=== PATIENT | female | born 1935 | race African-American/Black ===

== ENCOUNTER 2017-02-28 20:37 | Inpatient (IN) | payer MEDICARE, MEDICAID ==
[2017-02-28] MEDS ORDERED: Adacel (T-DAP) 0.5 ML VIAL ONE (21:43)
[2017-02-28 22:02] LABS: #Eosinphils 0.1 thou/uL (0.0-0.7); #Lymphocytes 1.6 thou/uL (1.20-3.40); #Monocytes 0.6 thou/uL (0.11-0.59); #Neutrophils 5.4 thou/uL (1.40-6.50); %Basophils 0.5 % (0.0-1.0); %Eosinophils 0.8 % (0.0-10.0); %Lymphocytes 21.1 % (21.0-51.0); %Monocytes 7.7 % (0.0-10.0); Hematocrit 34.3 % (36.0-47.0); Mean Platelet Volume 8.6 fL (7.4-10.4); Red Blood Cell (RBC) Count 3.29 mill/uL (4.20-5.40); White Blood Cell (WBC) Count 7.7 thou/uL (4.8-10.8)
[2017-02-28 22:14] LABS: Anion Gap 9 mmol/L (10-20); BUN (Urea Nitrogen) 18 mg/dL (9.8-20.1); Calc. Creatinine Clearance 0 mL/min (70-130); Calcium 6.9 mg/dL (7.8-10.44); Carbon Dioxide 30 mmol/L (23-31); Chloride 98 mmol/L (98-107); Estimated GFR-MDRD 17
[2017-02-28] MEDS ORDERED: Morphine 4 MG/ML VIAL ONE (22:25)
--- NOTE | 2017-02-28 22:28 | RAD ---
TWO VIEWS OF THE LEFT ELBOW 02/28/17 INDICATION: Fell out of wheelchair with elbow pain. FINDINGS: There is soft tissue swelling of the left arm and proximal forearm with Monckeberg calcifications wit hin the soft tissues. No joint capsular distention is evident. Radiocapitellar alignment is within no rmal limits. There is mild osteoarthrosis in the ulnohumeral joint. IMPRESSION: 1. No acute osseous abnormality. 2. Soft tissue swelling of the left arm. POS: BETSY
--- NOTE | 2017-02-28 22:31 | RAD ---
TWO VIEWS OF THE LEFT HUMERUS: 02/28/17 HISTORY: Fall from wheelchair with arm pain. IMPRESSION: No acute fracture or subluxation is evident. Mild glenohumeral osteoarthrosis. Mild elbow joint osteo arthrosis. Partial visualization of a left sided chest wall pacemaker. Moderate left AC joint osteoar throsis. Monckeberg calcification within the soft tissues of the left arm. There is diffuse soft tiss ue swelling of the left arm. COMMENTS: No comparisons are available. POS: CALLY
[2017-02-28] MEDS ORDERED: Potassium Chloride 40 MEQ in Sodium Chloride 0.9% 250 ML 250 ML IVPB SCH (23:00)
--- NOTE | 2017-03-01 00:03 | CON ---
DATE OF CONSULTATION: 02/28/2017 HISTORY OF PRESENT ILLNESS: The patient is an 81-year-old -Ang[place] female who was transferred to [facility] from the shelter after a fall from her wheelchair. She reportedly hit her head on the table and then went to the floor. CT of head negative for any acute changes. CT of the cervical spine is notable for questionable C2 odontoid fracture and increased spondylolisthesis at C3-C4. I am seeing the patient at the bedside. She is complaining of some pain to her head. She has little movement in bilateral upper and lower extremities. Her son reports that she has some long history of lower extremity weakness, which has been progressively worse over the last year and a half. For the last year and a half, the patient has been wheelchair bound. She reports that she did have a fall about a month ago and since that time, she has had progressively worsening bilateral arm weakness as well. PAST MEDICAL HISTORY: Coronary artery disease on plavix, congestive heart failure, type 2 diabetes, GERD, dementia, hypertension, end-stage renal disease on dialysis, anemia, encephalopathy. PAST SURGICAL HISTORY: Dialysis shunt, hysterectomy, and CABG. SOCIAL HISTORY: The patient lives in shelter. She does not smoke, drink, or use any drugs. ALLERGIES: The patient is allergic to PENICILLIN AND SULFA. REVIEW OF SYSTEMS: Per HPI. PHYSICAL EXAMINATION: VITAL SIGNS: Blood pressure is 158/53, pulse of 65, respiration rate is 16, 97 % on room air, temperature is 97.9. HEAD: Patient has an abrasion and hematoma to the forehead and small skin tear over the right scalp. EYES: PERRLA. Extraocular movements are intact. Sclerae white. ENT: Oral mucosa is pink, intact, moist. She has a normal voice. NECK: Patient is currently in an [place] collar. She has no tenderness to palpation. RESPIRATORY: The patient is breathing comfortably. She has symmetric chest expansion. CARDIOVASCULAR: Regular rate and rhythm. MUSCULOSKELETAL: Patient has ecchymosis to bilateral upper extremities. She has some decreased strength to bilateral upper and lower extremities 2/5 throughout. Peripheral pulses are intact and symmetric. NEUROLOGIC: She is A and O x2, oriented to person and place. This is baseline for the patient per her son. She has normal speech. She has weakness in bilateral upper and lower extremities, 2/5 strength throughout. Negative Stern's, negative clonus. ASSESSMENT: Fall, type 2 odontoid fracture of indeterminate age, spondylolisthesis of C3-C4, cervical myelopathy. PLAN: The patient has been admitted to the Trauma Service. She was then placed on [place] collar and will be kept on spinal precautions. We will plan to get further evaluation, the patient with a noncontrast cervical MRI. I have discussed this plan with Dr. Palma who is in agreement. Please reach out to Neurosurgery Service for additional questions or concerns. CL
[2017-03-01] MEDS ORDERED: Promethazine HCl 25 MG/ML VIAL IM PRN (00:30)
[2017-03-01] MEDS ORDERED: HumaLOG 300 UNITS/3 ML VIAL SC PRN (00:30)
[2017-03-01] MEDS ORDERED: hydrALAZINE 20 MG/ML VIAL SLOW IVP PRN (00:30)
[2017-03-01] MEDS ORDERED: Dextrose 50% Abboject 50 ML SYRINGE SLOW IVP PRN (00:30)
[2017-03-01] MEDS ORDERED: Ondansetron ODT 4 MG TAB PO PRN (00:30)
[2017-03-01] MEDS ORDERED: Polyethylene Glycol 3350 17 GM Packet PO PRN (00:30)
[2017-03-01] MEDS ORDERED: Ondansetron HCl/PF 4 MG/2 ML Vial IVP PRN (00:30)
[2017-03-01] MEDS ORDERED: Dextrose 5% in Water 1,000 ML IV PRN (00:30)
[2017-03-01] MEDS ORDERED: Acetaminophen 500 MG TAB PO PRN (00:30)
[2017-03-01 00:47] VITALS: BMI 28.3
[2017-03-01] MEDS: Morphine 2 mg/2ml in 0.9% NaCl PF SYRINGE IV PRN ×2 (01:38→06:37)
[2017-03-01 05:38] LABS: #Basophils 0.1 thou/uL (0.0-0.2); #Eosinphils 0.1 thou/uL (0.0-0.7); #Lymphocytes 1.6 thou/uL (1.20-3.40); #Monocytes 0.6 thou/uL (0.11-0.59); #Neutrophils 4.3 thou/uL (1.40-6.50); %Eosinophils 1.2 % (0.0-10.0); %Lymphocytes 23.7 % (21.0-51.0); %Monocytes 8.8 % (0.0-10.0); Hematocrit 36.2 % (36.0-47.0); Mean Platelet Volume 8.5 fL (7.4-10.4); Red Blood Cell (RBC) Count 3.47 mill/uL (4.20-5.40); White Blood Cell (WBC) Count 6.5 thou/uL (4.8-10.8)
[2017-03-01 05:40] LABS: Anion Gap 8 mmol/L (10-20); BUN (Urea Nitrogen) 19 mg/dL (9.8-20.1); Calc. Creatinine Clearance 16 mL/min (70-130); Carbon Dioxide 29 mmol/L (23-31); Chloride 99 mmol/L (98-107); Estimated GFR-MDRD 16
--- NOTE | 2017-03-01 07:54 | HP ---
Cas Bowens PA-C, dictating for Dr. Sherwin Stewart. DATE OF SERVICE: 02/28/2017 CONSULTING PHYSICIAN: Dr. Palma for Neurosurgery. CHIEF COMPLAINT: Evaluation status post fall. HISTORY OF PRESENT ILLNESS: An 81-year-old female, who presented to ED from [place] after evaluatio n there from status post fall from her retirement at that point. The patient reported that she fel l forward out of her wheelchair where she was bruised, she was bound at the retirement. She hit he r head on the table. The patient does have a hematoma on the forehead and C2 fractures noted on CT s can from [place]. The patient denies any head or neck pain. She does report pain in left arm which shows ecchymosis and bruising. The patient is A and O x2 at baseline. The patient denied any chest pain, dizziness, shortness of breath prior to fall. PAST MEDICAL HISTORY: Includes spondylolisthesis of the cervical spine, end-stage renal disease, dys phagia, dementia, congestive heart failure, coronary artery disease, cardiomyopathy, type 2 diabetes, hypertension, and on dialysis. PAST SURGICAL HISTORY: Right upper extremity fistula, history of hysterectomy, and CABG. PSYCHIATRIC HISTORY: No psychiatric history. SOCIAL HISTORY: Denies alcohol, drug, or smoking history. She is a resident of [facility] area. REVIEW OF SYSTEMS: All systems reviewed otherwise stated in HPI were negative. PHYSICAL EXAMINATION: VITAL SIGNS: Blood pressure 158/53, heart rate is 65, respiratory rate 12, 97.9 temperature, 10/10 p ain, 97% on room air. GENERAL: She is in no acute distress. A and O x2. HEAD: Normocephalic. Abrasion and hematoma about 1.5 cm of right frontal area. EYES: Pupils are equal, round, reactive to light. NECK: No JVD, no masses. Trachea is midline. She is on a cervical collar. RESPIRATORY: She is clear bilaterally via auscultation. CARDIOVASCULAR: S1, S2, regular rate and rhythm. ABDOMEN: Soft, nontender, nondistended. BACK: Unremarkable. EXTREMITIES: Upper extremity: Hematoma and ecchymosis in left upper extremity, pain bilaterally in upper extremities, 2/5 strength in bilateral upper extremities. The patient is intact. Radial pulse s normal. Bilateral lower extremities, 1/5 strength, as well as sensation, is intact. Pulses normal . No obvious injuries. LABORATORY DATA: Results are pending. RADIOLOGIC REPORTS: CT C-spine showed a C2 odontoid fracture and significant narrowing and stenosis of C3-4. Pending elbow and humerus x-rays. ASSESSMENT: 1. Status post fall. 2. Multiple medical comorbidities. 3. C2 odontoid fracture. 4. Acute traumatic pain. The plan will be to admit to the surgical floor at this time with neurosurgical consultation. We vignesh l await their plan in regard to the noted above injuries. We will continue her on a regular diet as instructed from her retirement report. Continue her home medications, maintain pain control adequa tely with p.o. and IV analgesics. Review all final reports of laboratory findings. The patient has been discussed with Dr. Stewart who agrees with the above plan.
[2017-03-01] MEDS: Carvedilol 25 MG TAB PO SCH (08:40)
[2017-03-01] MEDS: Senokot S 8.6-50 MG TAB PO SCH ×2 (08:40→20:15)
[2017-03-01] MEDS: Famotidine 20 MG TAB PO SCH (08:40)
--- NOTE | 2017-03-01 10:11 | PRG ---
DATE OF SERVICE: 03/01/2017 Ms. Olivarez is seen with Stacey Louise on rounds. Please see her H&P for full details. Briefly, Ms. Reginald london had a fall, struck her head on her forehead and has question of a C2 fracture. She has been seen by Neurosurgery. Dr. Palma recommends no further treatment. Patient has a history of progressiv e upper and lower extremity weakness baseline and baseline dementia. She will be [facility]. Palma says she does not need a caller. Please see consult for details of that.
[2017-03-01] MEDS ORDERED: Atorvastatin Calcium 10 MG TAB PO SCH (21:00)
--- NOTE | 2017-03-01 23:31 | PRG ---
DATE OF SERVICE: 03/01/2017 SUBJECTIVE: No acute events overnight. The patient's pain is controlled. No further complaints at this time. Denies any chest pain, shortness of breath, nausea, or vomiting. OBJECTIVE: VITAL SIGNS: Temperature 97.8, heart rate 82, respiratory rate 20, 96%, blood pressure is 116/57. PULMONARY: Clear bilaterally via auscultation. CARDIOVASCULAR: S1 and S2, regular rate and rhythm. ABDOMEN: Soft, nontender, and nondistended. EXTREMITIES: Tenderness in the left upper extremity due to the ecchymosis. Extremities are unremark able. Otherwise, weak. Sensation is intact. LABORATORY FINDINGS: CBC showed a WBC of 6.5, hemoglobin 11, hematocrit of 36.2, platelet count 109. Chemistry: Sodium of 133, potassium 3.3, chloride 99, bicarbonate 29, BUN 19, creatinine 3.34, glu cose 59. ASSESSMENT AND PLAN: This is an 81-year-old female status post fall with C2 fracture, progressive wo rsening and weakness of bilateral upper extremities. Dr. Palma for Neurosurgery has recommended f antoniother treatment. They removed the collar and at the earliest convenience be able to transfer her ba ck to her senior living. At this time, we will continue with Nephrology's treatment plan and optimize her pain with p.o. analgesics. Otherwise, the patient was discussed with Dr. Bautista and he agrees wi th the above plan.
[2017-03-02] MEDS: Carvedilol 25 MG TAB PO SCH (08:10)
[2017-03-02] MEDS: Famotidine 20 MG TAB PO SCH (08:10)
[2017-03-02] MEDS: Senokot S 8.6-50 MG TAB PO SCH (08:11)
--- NOTE | 2017-03-02 10:04 | CON ---
DATE OF CONSULTATION: 03/02/2017 HISTORY OF PRESENT ILLNESS: Ms. Olivarez is an 81-year-old black female who was admitted secondary to a fall. She underwent a CT scan of her brain and cervical neck. She was found to have a C2 fracture. She is currently on neck support. We are being consulted for her maintenance hemodialysis. Please note, she underwent for her regular dialysis yesterday without any difficulty. No heparin was used. This morning, voices no new complaints. REVIEW OF SYSTEMS: Positive for neck pain. Positive for confusion. No nausea, no vomiting. Denies any syncopal episode. No chest pain, no shortness of breath, no productive cough, no fever or chill s. No abdominal pain. No gross hematuria. No dysuria, no urinary frequency. PAST MEDICAL HISTORY: 1. Patient has ESRD and currently on maintenance hemodialysis Friday, , and Friday. 2. She has a history of dementia. 3. Dyslipidemia. 4. Hypertension. 5. Type 2 diabetes mellitus, controlled by diet. 6. Coronary artery disease. PAST SURGICAL HISTORY: 1. Status post cardiac catheterization. 2. Status post coronary artery bypass graft. 3. Status post AV fistula placement. 4. Status post hysterectomy. 5. Status post cuffed dialysis catheter placement. ALLERGIES: PENICILLIN, SULFA. TRAUMA: Recently status post fall with cervical fracture - C2. IMMUNIZATIONS: Up to date. HOSPITALIZATIONS: Please see past medical history. SOCIAL HISTORY: The patient lives in a assisted at [place]. Single. Total of 8 children with two . Status post multiple blood transfusions. Currently, no alcohol. No IV drug abuse. S edentary lifestyle. FAMILY HISTORY: No family history of ESRD. PHYSICAL EXAMINATION: VITAL SIGNS: Blood pressure is noted at 130/50, heart rate 63, respiratory rate 16, temperature 97.5 , pulse ox 94%. GENERAL: Awake, alert, supine, comfortable, not in overt distress. HEENT: Pinkish conjunctivae, anicteric sclerae. NECK: No neck mass, no carotid bruits, no JVD. She does have a cervical collar. LUNGS: Decreased breath sounds. No wheezing. HEART: Normal sinus rhythm. No murmur, no gallops or rubs. ABDOMEN: Globular, soft, nontender, no masses. EXTREMITIES: No edema. NEUROLOGIC: Awake, intermittently confused, not in distress. Moving all extremities. MEDICATIONS: Of 03/02/2017, Tylenol 1000 mg q.6 hours p.r.n., Lipitor 10 mg at bedtime, Coreg 25 mg p.o. q.a.m., Pepcid 20 mg daily, hydralazine 10 mg IV q.4 hours p.r.n., Levsin 0.125 mg p.o. b.i.d., Humalog sliding scale, Zofran 4 mg IV q.6 hours p.r.n. LABORATORY DATA: Of 03/01/2017, white count 6.5, hemoglobin 11. Sodium 133, potassium 3.3, chloride 99, carbon dioxide 29, BUN 19, creatinine 3.34, GFR 16 mL per minute, calcium 7.0. ASSESSMENT AND PLAN: 1. End-stage renal disease, stable. Continue Friday, , and Friday dialysis. Fluid remov al only as tolerated by the patient. Due to the recent trauma, we are trying to avoid any heparin us e if possible. 2. C2 fracture - continue supportive care. Neurosurgery is following. Cervical collar will probabl y either be continued or discontinued by the neurosurgeon. Overall, I agree with current management.
[2017-03-02 12:09] VITALS: BP 150/52; TEMP 98.4
--- NOTE | 2017-03-02 19:09 | DIS ---
DATE OF ADMISSION: 02/28/2017 DATE OF DISCHARGE: 03/02/2017 ADMITTING PHYSICIAN: Jaskaran Stewart M.D. CONSULTING PHYSICIAN: Dr. Palma, Neurosurgery. REASON FOR HOSPITALIZATION: Fall from wheelchair. HOSPITAL DIAGNOSES: Type 2 odontoid fracture of indeterminate age, spondylolisthesis of C3-C4, cervical myelopathy and fall from wheelchair. PROCEDURES: There were no operative procedures during this hospitalization. The patient was discharged. CONDITION: Stable. DISPOSITION: Discharged back to previous living situation at residential in [place], [place]. BRIEF SUMMARY OF HOSPITALIZATION: Renetta Olivarez is an 81-year-old female who was taken to the [facility] ER from the residential after a fall from her wheelchair. CT of the head was negative for any acute changes. CT of the cervical spine was notable for a questionable C2 odontoid fracture and increased spondylolisthesis at C3-C4. She was transferred to [facility] and evaluated by the emergency physician. Trauma services was consulted for admission and management. Neurosurgery was consulted for a questionable C2 fracture. The patient was placed in an [place] collar. Her son reported that she had some long history of lower extremity weakness which has been progressively worse over the last year and a half. She has since been wheelchair bound. She also has had multiple falls, one about a month ago and since that time has had progressively worsening bilateral arm weakness. After speaking with her son extensively, he also reports that at her residential, she refused to participate with physical and occupational therapy, which has made her overall weakness increased. She also has multiple comorbidities including coronary artery disease and she is on Plavix, congestive heart failure , type 2 diabetes, GERD, dementia, hypertension, end-stage renal disease on hemodialysis, anemia and encephalopathy. Her son does report that she is also noncompliant at times with receiving hemodialysis in the residential. Patient was admitted to the surgical floor. She remained stable. She was unable to receive an MRI because of her pacemaker. Dr. Palma, Neurosurgery saw her. He deemed that she is not a surgical candidate. Cervical collar could be removed as she goes back to her residential previous living situation per his recommendations. Dr. Collier of Nephrology was consulted and the patient underwent hemodialysis on 03/01/2017. On 03/02/2017, she was deemed stable to go back to her previous living situation at the residential. She does not need to follow up with Neurosurgery or Trauma Surgery. She was given followup information should she desire to follow up. She is to return to her residential and resume orders per her residential doctor as previously ordered. She was given discharge instructions and return precautions with son present in the room. History, review of systems, physical exam, assessment, and discharge plan were reviewed with Dr. Stewart. CL
== END 2017-03-02 15:24 | DRG 551 ==
LOC: ERS 20:37 → SURG A 21:19
PROVIDERS: ADMIT Surgery; ATTEND Surgery
PROC: 0HQ0XZZ Repair Scalp Skin, External Approach (ICD-10-PCS; 2017-02-28)
PROC: 5A1D70Z Performance of Urinary Filtration, Intermittent, Less than 6 Hours Per Day (ICD-10-PCS; principal; 2017-03-01)
DX: S12.110A Anterior displaced Type II dens fracture, initial encounter for closed fracture (principal); N18.6 End stage renal disease; I13.2 Hypertensive heart and chronic kidney disease with heart failure and with stage 5 chronic kidney disease, or end stage renal disease; G93.40 Encephalopathy, unspecified; E11.22 Type 2 diabetes mellitus with diabetic chronic kidney disease; I42.9 Cardiomyopathy, unspecified; G95.9 Disease of spinal cord, unspecified; F03.90 Unspecified dementia, unspecified severity, without behavioral disturbance, psychotic disturbance, mood disturbance, and anxiety; S00.83XA Contusion of other part of head, initial encounter; R13.10 Dysphagia, unspecified; W05.0XXA Fall from non-moving wheelchair, initial encounter; S40.022A Contusion of left upper arm, initial encounter; Z99.2 Dependence on renal dialysis; I25.10 Atherosclerotic heart disease of native coronary artery without angina pectoris; G89.11 Acute pain due to trauma; M43.12 Spondylolisthesis, cervical region; Z99.3 Dependence on wheelchair; Z91.81 History of falling; Z79.01 Long term (current) use of anticoagulants; D64.9 Anemia, unspecified; Z95.0 Presence of cardiac pacemaker; Z88.0 Allergy status to penicillin; Z88.2 Allergy status to sulfonamides; Z23 Encounter for immunization; I50.9 Heart failure, unspecified; K21.9 Gastro-esophageal reflux disease without esophagitis
CPT/HCPCS: 12001; 36415; 36416; 80048; 85025; 90471; 90715; 90935; 96365; 96375; G0257; G0390; G8978-GP-CN; G8979-GP-CM; G8996-GN-CL; G8997-GN-CL; G8998-GN-CL; J2270; J3480; J7050

== ENCOUNTER 2017-03-14 15:03 | Inpatient (IN) | payer MEDICARE, MEDICAID ==
[2017-03-14] MEDS ORDERED: Lidocaine 2% PF 5 ML VIAL ONE (15:38)
--- NOTE | 2017-03-14 16:50 | RAD ---
AP VIEW OF THE CHEST 03/14/17 INDICATION: History of altered mental status. COMPARISON: Prior exam dated 08/15/16. FINDINGS: There is cardiomegaly with pulmonary vascular congestion. There is small bilateral pleural effusions. There is a dual lead pacemaker overlying the left chest wall that is stable. Post CABG change is sim ilar. Endovascular stent involving the right upper extremity is similar. IMPRESSION: Findings of CHF . POS: CALLY
[2017-03-14 17:11] LABS: Calc. Creatinine Clearance 0 mL/min (70-130); Estimated GFR-MDRD 11
[2017-03-14 17:12] LABS: BUN (Urea Nitrogen) 33 mg/dL (9.8-20.1); Carbon Dioxide 29 mmol/L (23-31); Chloride 96 mmol/L (98-107)
[2017-03-14 17:13] LABS: ALT (SGPT) 236 U/L (8-55); AST (SGOT) 125 U/L (5-34); Alkaline Phosphatase 1143 U/L (40-150); Bilirubin, Total 1.1 mg/dL (0.2-1.2); CK (CPK) 193 U/L (29-168); Calcium 6.7 mg/dL (7.8-10.44); Globulin 6.2 g/dL (2.4-3.5); Protein, Total 8.1 g/dL (6.0-8.3)
[2017-03-14 17:18] LABS: Troponin I 0.036 ng/mL (< 0.028)
[2017-03-14] MEDS ORDERED: Ondansetron HCl/PF 4 MG/2 ML Vial IVP PRN (19:54)
[2017-03-14] MEDS ORDERED: Ondansetron ODT 4 MG TAB SL PRN (19:54)
[2017-03-14] MEDS ORDERED: Dextrose 5 % And 0.9 % NaCl 1,000 ML IV SCH (20:00)
[2017-03-14] MEDS ORDERED: Benzonatate 100 MG CAP PO PRN (20:17)
[2017-03-14] MEDS ORDERED: HOLD VANCOMYCIN FOR LEVEL >20 FS SCH (21:00)
[2017-03-14] MEDS ORDERED: Vancomycin HCl 1 GM in Premix Bag 1 BAG IVPB SCH ×4 (21:00)
[2017-03-14] MEDS ORDERED: Vancomycin HCl 1.25 GM in Sodium Chloride 0.9% 250 ML 250 ML IVPB SCH (21:00)
[2017-03-14] MEDS ORDERED: Vancomycin HCl 500 MG in Sodium Chloride 0.9% 100 ML IVPB SCH (21:00)
[2017-03-14] MEDS: Apixaban 5 MG TAB PO SCH (21:40)
--- NOTE | 2017-03-14 23:26 | HP ---
DATE OF ADMISSION: 03/14/2017 ADMITTING PHYSICIAN: Dr. Arnold Dewitt. PRIMARY CARE PHYSICIAN: Dr. Collier. CHIEF COMPLAINT: Edema, weakness, altered mental status. HISTORY OF PRESENT ILLNESS: Patient is an 81-year-old female who lives in a senior care. She has e nd-stage renal disease and is on dialysis. Secondary to extreme weakness, she has not had dialysis s friday. Patient recently had a fall, where she had a C-spine fracture and has been excessively lethargic and debilitated since this. Her sons are at the bedside and report that she has had poor p.o. intake over the last few days as well. During my interview, they reports that she is closer to baseline, but that earlier her mentation was altered. REVIEW OF SYSTEMS: The following complete review of systems was negative, unless otherwise mentioned in the HPI or below: Constitutional: Weight loss or gain, sense of well-being, ability to conduct usual activities, exerc ise tolerance. Skin/Breast: Rash, itching, changes in hair growth or loss, nail changes, breast lumps, tenderness, swelling, nipple discharge. Eyes: Vision, double vision, tearing, blind spots, pain. ENT/Mouth: Headaches (location, time of onset, duration, precipitating factors), vertigo, lightheade dness, injury. Vision, double vision, tearing, blind spots, pain, nose bleeding, colds, obstruction, discharge, dental difficulties, gingival bleeding, dentures, neck stiffness, pain, tenderness, masses in thyroid or other areas. Cardiovascular: Precordial pain, substernal distress, palpitations, syncope, dyspnea on exertion, or thopnea, nocturnal paroxysmal dyspnea, edema, cyanosis, hypertension, heart murmurs, varicosities, ph lebitis, claudication. Respiratory: Pain, shortness of breath, wheezing, stridor, cough, hemoptysis, fever or night sweats. Gastrointestinal: Poor appetite, dysphagia, indigestion, abdominal pain, heartburn, eructation, naus ea, vomiting, hematemesis, jaundice, constipation, or diarrhea, abnormal stools (harriet-colored, tarry, bloody, greasy, foul smelling), flatulence, hemorrhoids, recent changes in bowel habits. Genitourinary: Urgency, frequency, dysuria, nocturia, hematuria, polyuria, oliguria, unusual (or marialuisa nge in) color of urine, stones, hesitancy, change in size of stream, dribbling, acute retention or in continence, libido, potency. Musculoskeletal: Pain, swelling, redness or heat of muscles or joints, limitation, of motion, muscul ar weakness, atrophy, cramps. Neurologic/Psychiatric: Convulsions, paralyzes, tremor, incoordination, paresthesias, difficulties w ith memory of speech, sensory or motor disturbances, or muscular coordination (ataxia, tremor), emoti onal problems, anxiety, depression, previous psychiatric care, unusual perceptions, hallucinations. Allergy/Immunologic: Skin rash, anemia, bleeding tendency, polydipsia, polyuria, intolerance to heat or cold. PAST MEDICAL HISTORY: Significant for diabetes type 2, coronary artery disease, end-stage renal dise ase, GERD, dementia, hypertension, spondylolisthesis, cervical spine fracture. PAST SURGICAL HISTORY: Positive for dialysis shunt in right arm, hysterectomy, CABG. PSYCHIATRIC HISTORY: None. FAMILY HISTORY: Reviewed, noncontributory. SOCIAL HISTORY: She lives in a senior care. No alcohol, no drugs. No tobacco. HOME MEDICATIONS: Please see medication rec list. DRUG ALLERGIES: PENICILLINS and SULFA medications. PHYSICAL EXAMINATION: VITAL SIGNS: Vital statistics, temperature 99.2, blood pressure 121/52, pulse 75, respirations 20, O 2 sat 100% on 2 liters. GENERAL: She is nontoxic. Alert, somewhat confused, but definitely communicative. HEAD: She does have temporal wasting. EYES: PERRL. Extraocular muscles intact. ENT: Oral mucosa is very dry, but no bleeding from nares. No nasal deformities. NECK: Trachea midline. Normal range of motion. CHEST: Breath sounds are clear. No wheezing, no rales. CARDIAC: Heart rate regular. She also has regular rhythm, no regurg, gallops. ABDOMEN: Nontender, nondistended. No masses, no peritoneal signs. EXTREMITIES: She has no clubbing, no cyanosis. She does have edema in her hands bilaterally. NEUROLOGIC: Alert, oriented x2. SKIN: Once again warm and dry, but reports turgor. LABORATORY DATA AND IMAGES: Chest x-ray shows cardiomegaly with a calcified aortic knob, sternotomy changes, and hazy chronic appearing right upper perihilar infiltrates. Blood sample hemolyzed, thus interosseous labs were drawn. Results, CMP: Sodium 128, chloride 96, c arbon dioxide 29, BUN 33, creatinine 4.65, glucose 65, calcium 6.7. AST 125, ALT 236. Cardiac enzymes: CK of 193, CK-MB 1.2, troponin I 0.036. BNP of 2878. Albumin 1.9. ASSESSMENT AND PLAN: 1. End-stage renal disease. 2. Hypovolemia. 3. Altered mental status. PLAN: Dr. Collier was consulted by the ER physician. Dr. Collier ordered D5 normal saline for the patient. He will reassess her in the morning. Patient does have a large sacral decubitus ulcer. We will sta rt her on empiric vancomycin therapy and follow for any signs of sepsis or infection. We will contin ue her home anticoagulants and we will add medication accordingly once we have accurate medication pr ofile.
[2017-03-15] MEDS ORDERED: FLU VACC TS2017-18 (>65YR) 0.5 ML SYRINGE IM ONE (09:00)
[2017-03-15] MEDS: Apixaban 5 MG TAB PO SCH (09:42)
[2017-03-15] MEDS: Carvedilol 25 MG TAB PO SCH (09:43)
[2017-03-15] MEDS: Sevelamer Carbonate 800 MG TAB PO SCH ×3 (09:43→19:37)
--- NOTE | 2017-03-15 10:13 | PDOC.PN ---
- Subjective Encounter Start Date: 03/15/17 Encounter Start Time: 10:12 Subjective: MUCH MORE ALERT AND ACTIVE, SHE DENIES NEW COMPLAINTS -: LOTS OF CARING FAMILY MEMBERS AT BEDSIDE - Objective Resuscitation Status: Resuscitation Status DNR:Do Not Resuscitate MAR Reviewed: Yes Vital Signs & Weight: Vital Signs (12 hours) Temp Pulse Resp BP BP Pulse Ox 03/15/17 05:24 97.5 F L 62 20 104/51 L 100 03/15/17 00:00 98.3 F 71 20 112/53 L 100 Weight Weight 138 lb 7.205 oz I&O: 03/14/17 03/15/17 03/16/17 06:59 06:59 06:59 Intake Total 1000 Balance 1000 Result Diagrams: 03/14/17 16:11 Additional Labs: Accuchecks 03/15/17 03/14/17 06:11 20:20 POC Glucose 149 H 103 Radiology Reviewed by me: Yes Phys Exam - Physical Examination Constitutional: NAD HEENT: PERRLA, sclera anicteric Neck: supple, full ROM Respiratory: no wheezing, no rhonchi Cardiovascular: RRR CRISTIANO Gastrointestinal: soft, non-tender Musculoskeletal: edema present Neurological: moves all 4 limbs Psychiatric: normal affect Deviation from normal: LARGE SACRAL DQ ULCER Dx/Plan (1) Decubitus ulcer Code(s): L89.90 - PRESSURE ULCER OF UNSPECIFIED SITE, UNSPECIFIED STAGE Status : Chronic (2) C2 cervical fracture Code(s): S12.100A - UNSP DISP FX OF SECOND CERVICAL VERTEBRA, INIT FOR CLOS FX Status: Acute (3) Hyponatremia Code(s): E87.1 - HYPO-OSMOLALITY AND HYPONATREMIA Status: Acute (4) Anemia of renal disease Code(s): D63.1 - ANEMIA IN CHRONIC KIDNEY DISEASE Status: Chronic (5) CAD (coronary artery disease) Code(s): I25.10 - ATHSCL HEART DISEASE OF [place] CORONARY ARTERY W/O ANG PCTRS Status: Chronic Qualifiers: Coronary Disease-Associated Artery/Lesion type: bypass graft [place] vs. transplanted heart: [place] heart Associated angina: without angina Qualified Code(s): I25.810 - Atherosclerosis of coronary artery bypass graft(s) without angina pectoris (6) ESRD (end stage renal disease) on dialysis Code(s): N18.6 - END STAGE RENAL DISEASE; Z99.2 - DEPENDENCE ON RENAL DIALYSIS Status: Chronic - Plan cont current plan of care, continue antibiotics DIALYSIS PER RENAL. WOUND CARE FOR DQ ULCER -: OVERRALL IMPROVED * .
[2017-03-15] MEDS ORDERED: Acetaminophen 325 MG TAB PO PRN (10:15)
[2017-03-15] MEDS ORDERED: Nitroglycerin 0.4 MG TAB (25 Tab Bottle) SL PRN (10:15)
[2017-03-15] MEDS ORDERED: Polyethylene Glycol 3350 17 GM Packet PO PRN (10:15)
[2017-03-15] MEDS ORDERED: [UNRECOGNIZED DRUG - OTHER] PR PRN (10:15)
[2017-03-15] MEDS ORDERED: Loperamide HCl 2 MG CAP PO PRN (10:15)
[2017-03-15] MEDS ORDERED: Acetaminophen/Codeine 30-300mg Tablet PO PRN (10:15)
[2017-03-15] MEDS ORDERED: Diphenoxylate HCl/Atropine Tablet PO PRN (10:15)
--- NOTE | 2017-03-15 10:30 | CON ---
DATE OF CONSULTATION: 03/15/2017 HISTORY OF PRESENT ILLNESS: Ms. Olivarez is an 81-year-old black female who is a alf patient, ESRD and admitted for generalized weakness and some leg edema. She has had poor p.o. intake in the l ast several days. She has missed her dialysis. We are being consulted for her maintenance hemodialy sis. REVIEW OF SYSTEMS: No chest pain, decreased appetite, decreased energy level. Positive for chronic leg swelling, no diarrhea, no constipation. Positive for chronic wound at the back. No headache, no syncopal episode. Positive for confusion. No sore throat, no fever or chills, no chest pain, no sh ortness of breath. MEDICATIONS: Eliquis 2.5 mg p.o. b.i.d., Tessalon 100 mg p.o. t.i.d., Coreg 25 mg daily, status post vancomycin, Renvela 800 mg t.i.d. with meals. PAST MEDICAL HISTORY: 1. History of dementia? 2. ESRD. 3. Hypertension. 4. Dyslipidemia. 5. Type 2 diabetes mellitus, controlled by diet. 6. Coronary artery disease. 7. ESRD. 8. Recently status post C2 cervical neck fracture. PAST SURGICAL HISTORY: 1. Status post cuffed dialysis catheter placement. 2. Status post hysterectomy. 3. Status post AV fistula placement. 4. Status post cardiac catheterization. 5. Status post CABG. ALLERGIES: PENICILLIN and SULFA. TRAUMA: Status post cervical neck fracture, C2. IMMUNIZATIONS: Up to date. HOSPITALIZATIONS: Please see past medical history. SOCIAL HISTORY: Lives in alf in [place], single, eight children with two , status post multiple blood transfusions. Sedentary lifestyle. Currently, no alcohol, no drug abuse. FAMILY HISTORY: No family history of ESRD. PHYSICAL EXAMINATION: VITAL SIGNS: Blood pressure is currently 104/51, heart rate 62, respiratory rate 20, temperature 97. 5, pulse ox 100%. GENERAL: Awake, lethargic, not in overt distress. SKIN: Decreased turgor. HEENT: Patient has pinkish conjunctivae, anicteric sclerae. NECK: No neck mass, no carotid bruits, no JVD. CHEST: No deformities. LUNGS: Decreased breath sounds. HEART: Normal sinus rhythm. No murmur, no gallops or rubs. ABDOMEN: Globular, soft, nontender, no masses. EXTREMITIES: Positive for edema. NEUROLOGIC: Decreased mentation. LABORATORY DATA: of 03/14/2017, sodium 128, potassium pending, chloride 96, carbon dioxide 29, BUN 3 3, creatinine 4.65, glucose 65, calcium 6.7, AST 125, ALT 236. BNP is 2878, glucose 149. On 017, chest x-ray shows CHF. ASSESSMENT AND PLAN: 1. Congestive heart failure - Due to the decreased p.o. intake, she is on D5 normal saline. We vignesh l try to remove excess fluid via dialysis. 2. End-stage renal disease. We will continue Friday, , and Friday dialysis. Please note the patient missed treatment for the last several dialysis sessions. We will do her for 3.5 hour he modialysis. We will attempt about 2-3 liters of fluid as tolerated. 3. Dementia - supportive care. I did discuss about palliative care. However, one of the relatives is unable to decide, they are waiting for the son to come. Overall, prognosis remains guarded.
[2017-03-15 14:06] VITALS: BMI 24.5
[2017-03-15 15:13] LABS: Mean Platelet Volume 9.2 fL (7.4-10.4); Red Blood Cell (RBC) Count 2.67 mill/uL (4.20-5.40); White Blood Cell (WBC) Count 17.8 thou/uL (4.8-10.8)
[2017-03-15 15:19] LABS: Vancomycin, Trough 12.8 ug/mL
[2017-03-15 15:21] LABS: Anion Gap 9 mmol/L (10-20); BUN (Urea Nitrogen) 35 mg/dL (9.8-20.1); BUN/Creatinine Ratio 6.84; Calc. Creatinine Clearance 9 mL/min (70-130); Calcium 7.8 mg/dL (7.8-10.44); Carbon Dioxide 32 mmol/L (23-31); Chloride 100 mmol/L (98-107); Estimated GFR-MDRD 10; Phosphorus 3.4 mg/dL (2.3-4.7)
[2017-03-15 15:40] LABS: Anisocytosis SLIGHT = 6-15 cells (100X) (0-5/hpf); Band 13 % (5-11); Macrocytosis SLIGHT = 6-15 cells (100X) (0-5/hpf); Neutrophil 85 % (42-75); Ovalocytes SLIGHT = 2-5 cells (100X) (0-1/hpf); Polychromasia SLIGHT = 2-3 cells (100X) (0-2/hpf); Schistocytes SLIGHT = 2-5 cells (100X) (0-1/hpf); Target Cells SLIGHT = 2-5 cells (100X) (0-1/hpf)
[2017-03-15] MEDS: Vancomycin HCl 750 MG in Sodium Chloride 0.9% 250 ML 250 ML IVPB SCH (16:50)
[2017-03-15] MEDS ORDERED: Non-Formulary Item 1 EACH (Ranitidine Hcl [Ranitidine Hcl] 150 MG) PO SCH (21:00)
[2017-03-15] MEDS: Sacubitril 49 MG/Valsartan 51 MG TABLET PO SCH (21:45)
[2017-03-16 09:09] LABS: ALT (SGPT) Less than 7 U/L (8-55); AST (SGOT) 8 U/L (5-34); Alkaline Phosphatase 114 U/L (40-150); Anion Gap 8 mmol/L (10-20); BUN (Urea Nitrogen) 16 mg/dL (9.8-20.1); Bilirubin, Total 0.8 mg/dL (0.2-1.2); Calc. Creatinine Clearance 15 mL/min (70-130); Calcium 7.6 mg/dL (7.8-10.44); Carbon Dioxide 34 mmol/L (23-31); Chloride 101 mmol/L (98-107); Estimated GFR-MDRD 20; Globulin 3.9 g/dL (2.4-3.5); Protein, Total 5.4 g/dL (6.0-8.3)
[2017-03-16 09:13] LABS: Troponin I 0.032 ng/mL (< 0.028)
[2017-03-16] MEDS: Carvedilol 25 MG TAB PO SCH (09:39)
[2017-03-16] MEDS: Famotidine 20 MG TAB PO SCH (09:39)
[2017-03-16] MEDS: Sacubitril 49 MG/Valsartan 51 MG TABLET PO SCH ×2 (09:40→21:55)
[2017-03-16] MEDS: Clopidogrel Bisulfate 75 MG TAB PO SCH (09:40)
[2017-03-16] MEDS: Sevelamer Carbonate 800 MG TAB PO SCH ×3 (09:40→17:33)
[2017-03-16 10:33] LABS: Hematocrit 25.3 % (36.0-47.0); Mean Platelet Volume 9.8 fL (7.4-10.4); Red Blood Cell (RBC) Count 2.46 mill/uL (4.20-5.40); White Blood Cell (WBC) Count 23.1 thou/uL (4.8-10.8)
[2017-03-16 10:34] LABS: Anisocytosis SLIGHT = 6-15 cells (100X) (0-5/hpf); Band 6 % (5-11); Myelocyte 1 % (0-0); Neutrophil 89 % (42-75); Polychromasia SLIGHT = 2-3 cells (100X) (0-2/hpf); Target Cells SLIGHT = 2-5 cells (100X) (0-1/hpf)
--- NOTE | 2017-03-16 10:45 | PRG ---
DATE OF SERVICE: 03/16/2017 SERVICE: Renal Medicine. SUBJECTIVE: Ms. Olivarez is an 81-year-old black female who was admitted for mental status change. Thi s is most likely from her dementia. In addition, we are consulted for maintenance hemodialysis. She underwent hemodialysis yesterday without any difficulty. She is still confused. She voices no new complaints. Wound Care has seen the patient for her sacral decubitus. No complaints of chest pain or shortness of breath. However, she does complain of some diffuse pain. OBJECTIVE: VITAL SIGNS: Blood pressure 120/49, heart rate 65, respiratory rate 18, temperature 97.4 and pulse o x 100%. GENERAL: Awake, supine and comfortable, not in distress. SKIN: Adequate turgor. HEENT: She has slightly pale conjunctivae, anicteric sclerae. NECK: No neck mass, no carotid bruits, no JVD. CHEST: No deformities. LUNGS: Decreased breath sounds. HEART: Normal sinus rhythm. No murmur, no gallops, no rubs. ABDOMEN: Globular, soft and nontender. No masses. EXTREMITIES: No edema, no deformities. At the back, positive for sacral decubitus. MEDICATIONS: Medications of 03/16/2017 reviewed. LABORATORY DATA: Laboratories of 03/15/2017, white count 17.8 and hemoglobin 8.4. On 03/16/2017, so dium 140, potassium 3.2, chloride 101, carbon dioxide 34, BUN 16, creatinine 2.81, calcium 7.6 and tr oponin I 0.032. ASSESSMENT AND PLAN: 1. Congestive heart failure - patient underwent hemodialysis yesterday with fluid removal. Feeling better. 2. End-stage renal disease, stable - will be continuing Friday, and Friday hemodialysis regimen. 3. Sacral decubitus. Continue supportive care - wound care following. 4. Confusion - secondary to underlying dementia. 5. Anemia - start Epogen 10,000 units subcu q. week. Recheck basic metabolic panel and CBC in a.m.
[2017-03-16] MEDS ORDERED: Epoetin (ESRD) 20,000 UNITS/ML SC SCH (11:00)
[2017-03-16] MEDS ORDERED: Vancomycin HCl 25 MG/ML Oral PO SCH (12:30)
[2017-03-16] MEDS: Nystatin 500,000 UNITS/5 ML UDCUP SSW SCH ×3 (13:08→21:55)
[2017-03-16] MEDS: Vancomycin HCl 25 MG/ML Oral PO SCH ×2 (17:42→23:53)
--- NOTE | 2017-03-16 20:55 | PDOC.PN ---
- Subjective Encounter Start Date: 03/16/17 Encounter Start Time: 12:30 Patient seen and examined. No new complaints. No overnight events - Objective Resuscitation Status: Resuscitation Status DNR:Do Not Resuscitate MAR Reviewed: Yes Vital Signs & Weight: Vital Signs (12 hours) Temp Pulse Resp BP BP Pulse Ox 03/16/17 20:51 97.5 F L 62 20 113/53 L 98 03/16/17 16:41 97.9 F 64 12 111/53 L 100 03/16/17 11:10 97.7 F 61 12 103/52 L 100 Weight Admit Weight 138 lb Weight 136 lb 0.403 oz I&O: 03/15/17 03/16/17 03/17/17 06:59 06:59 06:59 Intake Total 1000 600 Output Total 1400 Balance 1000 -800 Result Diagrams: 03/17/17 03:54 03/17/17 03:54 Additional Labs: Accuchecks 03/16/17 03/16/17 03/16/17 16:46 11:17 05:09 POC Glucose 140 H 135 H 119 H 03/15/17 20:34 POC Glucose 127 H EKG Reviewed by me: Yes (Tele SR) Phys Exam - Physical Examination Constitutional: NAD Respiratory: no wheezing, no rhonchi Cardiovascular: RRR, no rub Gastrointestinal: soft, non-tender, positive bowel sounds Musculoskeletal: edema present Dx/Plan - Plan DVT proph w/SCDs IMPRESSION: 1. Acute on Chronic Systolic HF 2. Cdiff diarrhea 3. Ischemic CM/CAD 4. Abn LFTs - prob due to passive hepatic congestion 5. ESRD on dialysis/Dementia/Infected Stage IV Sacral Decubitus ulcer present on admission/Hyponatremia/Oral thrush PLAN: * Dialysis per Nephrology * Cont current meds as below * Change Coreg to 12.5 BID * Cont Vancomycin IV * Start PO Vanc for Cdiff diarrhea * Add PO Nystatin S&S Review of Systems - Review of Systems Other: Cannot be reliably obtained due to current cognition - Medications/Allergies Allergies/Adverse Reactions: Allergies Allergy/AdvReac Type Severity Reaction Status Date / Time penicillin G Allergy Verified 03/15/17 01:43 Sulfa (Sulfonamide Allergy Verified 03/15/17 01:43 Antibiotics) Medications: Current Medications Acetaminophen (Tylenol) 650 mg PO Q4H PRN PRN Reason: Headache/Fever or Pain Acetaminophen/Codeine Phosphate (Tylenol #3) 1 tab PO Q6H PRN PRN Reason: Pain Last Admin: 03/16/17 09:37 Dose: 1 tab Benzonatate (Tessalon) 100 mg PO TID PRN PRN Reason: Cough Carvedilol (Coreg) 12.5 mg PO BID-[facility] Clopidogrel Bisulfate (Plavix) 75 mg PO DAILY [facility] Last Admin: 03/16/17 09:40 Dose: 75 mg Dextrose (Glutose 15 40% Oral Gel) 0 gm PO PRN PRN PRN Reason: Hypoglycemia Diphenoxylate HCl/Atropine (Lomotil) 2 tab PO Q12H PRN PRN Reason: Diarrhea/Loose Stools Epoetin Robert (Procrit) 10,000 units SC Q7D@1100 [facility] Last Admin: 03/16/17 13:02 Dose: 10,000 units Famotidine (Pepcid) 20 mg PO DAILY [facility] Last Admin: 03/16/17 09:39 Dose: 20 mg Hyoscyamine Sulfate (Levsin) 0.125 mg PO BID [facility] Last Admin: 03/16/17 09:40 Dose: 0.125 mg Vancomycin HCl 1.25 gm/ Sodium (Chloride) 250 mls @ 166.667 mls/hr IVPB [facility] Vancomycin HCl 1 gm/ Device 200 mls @ 200 mls/hr IVPB [facility] Vancomycin HCl 750 mg/ Sodium (Chloride) 250 mls @ 250 mls/hr IVPB [facility] Last Admin: 03/15/17 16:50 Dose: 250 mls Vancomycin HCl 500 mg/ Sodium (Chloride) 100 mls @ 100 mls/hr IVPB [facility] Loperamide HCl (Imodium) 2 mg PO PRN PRN PRN Reason: AFTER EA LOOSE STOOL Miscellaneous Medication (Pharmacy To Dose) 1 each IVPB PRN PRN PRN Reason: Pharmacy to dose Nitroglycerin (Nitrostat) 0.4 mg SL Q5MIN PRN PRN Reason: Chest Pain Hold Vancomycin For (Level >20) 0 each FS .AT DIALYSIS [facility] Nystatin (Mycostatin) 500,000 units SSW QID [facility] Last Admin: 03/16/17 17:33 Dose: 500,000 units Polyethylene Glycol (Miralax) 17 gm PO Q12H PRN PRN Reason: Constipation Sacubitril/Valsartan (Entresto 49 Mg-51 Mg Tablet) 1 tab PO BID [facility] Last Admin: 03/16/17 09:40 Dose: 1 tab Sevelamer Carbonate (Renvela) 800 mg PO TID-WM [facility] Last Admin: 03/16/17 17:33 Dose: 800 mg Sodium Chloride (Flush - Normal Saline) 10 ml IVF PRN PRN PRN Reason: Saline Flush Last Admin: 03/15/17 09:43 Dose: 10 ml Vancomycin HCl (First Vancomycin) 250 mg PO Q6HR [facility] Last Admin: 03/16/17 17:42 Dose: 250 mg
[2017-03-17 04:42] LABS: Anion Gap 10 mmol/L (10-20); BUN (Urea Nitrogen) 20 mg/dL (9.8-20.1); Calc. Creatinine Clearance 13 mL/min (70-130); Calcium 7.6 mg/dL (7.8-10.44); Carbon Dioxide 32 mmol/L (23-31); Chloride 100 mmol/L (98-107); Estimated GFR-MDRD 17
[2017-03-17 04:46] LABS: Band 21 % (5-11); Hematocrit 29.2 % (36.0-47.0); Hypochromia SLIGHT = 6-15 cells (100X) (0-5/hpf); Macrocytosis SLIGHT = 6-15 cells (100X) (0-5/hpf); Mean Platelet Volume 9.9 fL (7.4-10.4); Neutrophil 73 % (42-75); Target Cells SLIGHT = 2-5 cells (100X) (0-1/hpf); Tear Drops SLIGHT = 2-5 cells (100X) (0-1/hpf); White Blood Cell (WBC) Count 24.2 thou/uL (4.8-10.8)
[2017-03-17] MEDS: Vancomycin HCl 25 MG/ML Oral PO SCH ×3 (05:48→18:33)
[2017-03-17] MEDS: Nystatin 500,000 UNITS/5 ML UDCUP SSW SCH ×4 (08:02→20:17)
[2017-03-17] MEDS: Famotidine 20 MG TAB PO SCH (08:02)
[2017-03-17] MEDS: Clopidogrel Bisulfate 75 MG TAB PO SCH (08:02)
[2017-03-17] MEDS: Sevelamer Carbonate 800 MG TAB PO SCH ×3 (08:02→16:44)
[2017-03-17] MEDS: Sacubitril 49 MG/Valsartan 51 MG TABLET PO SCH ×2 (09:07→20:17)
--- NOTE | 2017-03-17 14:04 | PQF ---
LITZY RICO MALIK MD [id number] [facility]-281 [id number] CLINICAL DOCUMENTATION IMPROVEMENT CLARIFICATION FORM: ICD-10 Updated PLEASE DO AN ADDENDUM TO THE PROGRESS NOTE WITH ANY DOCUMENTATION UPDATES OR ADDITIONS AND CARRY THROUGH TO DC SUMMARY. THANK YOU. Date: 03-17-17 ATTN: DR. CUTLER Please exercise your independent, professional judgment in responding to the clarification form. Clinical indicators are provided on the bottom of this form for your review Please check appropriate box(s): [ ] Protein Calorie Malnutrition: [ ] Mild [ ] Moderate [ ] Severe [ ] Other Malnutrition (please specify) __ [ ] Underweight without malnutrition [ ] Cachexia [ ] Other diagnosis [ ] Unable to determine CLINICAL INDICATORS - SIGNS / SYMPTOMS / LABS BMI 24.7 H&P: TEMPORAL WASTING; EDEMA IN HANDS BILATERALLY LABS: ALBUMIN 1.9 03-15 1.5 03-16 1.5 03-16 ATTENDING PN: stage IV ulcer noted to the sacrococcyx NUTRITION CONSULT: severe temporal muscle wasting observed patient was observed to be edentulous RISK FACTORS ER: PT BASELINE IS A&O X 1 RECENT FALL W/ C-SPINE FX - LETHARGIC AND DEBILITATED SINCE NEPHRO CONSULT: CONFUSION D/T DEMENTIA TREATMENT: NUTRITION CONSULT: The patient's family provided all of the history. They reported that she had not been eating well for the past month while she has been at the custodial. She typically takes a pureed texture - RN notified. The family also reported that the patient has lost weight at the custodial, but they did not know how much. The patient does not like Nepro, but they were willing to try Suplena. They reported that she did like the Mighty Shakes as well. NUTRITION RECOMMENDATIONS: 1) Change to 2000 Consistent Carbohydrate, Renal High Protein, Heart Healthy Diet with a pureed consistency per family request. May need to liberalize to promote po intake. 2) Request Nutrition supplement protocol. 3) The patient would benefit from Gurpreet supplementation TID. THANK YOU, BRANDY (This form is maintained as a part of the permanent medical record) 2014 [employer]. All Rights Reserved Brandy Snyder RN, BS [email or web address] Cell [facility]
[2017-03-17] MEDS: Carvedilol 6.25 MG TAB PO SCH (16:44)
--- NOTE | 2017-03-17 17:43 | PDOC.PN ---
- Subjective Encounter Start Date: 03/17/17 Encounter Start Time: 14:00 Patient seen and examined. No new complaints. No overnight events - Objective Resuscitation Status: Resuscitation Status DNR:Do Not Resuscitate MAR Reviewed: Yes Vital Signs & Weight: Vital Signs (12 hours) Temp Pulse Resp BP BP Pulse Ox 03/17/17 08:09 98.4 F 64 18 95/39 L 92 L 03/17/17 08:00 98.4 F 64 18 98 03/17/17 06:29 97/52 L 03/17/17 06:03 97.9 F 69 16 03/17/17 06:00 93 L Weight Admit Weight 138 lb Weight 139 lb 6 oz I&O: 03/16/17 03/17/17 03/18/17 06:59 06:59 06:59 Intake Total 600 Output Total 1400 Balance -800 Result Diagrams: 03/17/17 03:54 03/17/17 03:54 Additional Labs: Accuchecks 03/17/17 03/17/17 03/16/17 11:06 06:03 21:52 POC Glucose 91 88 133 H Phys Exam - Physical Examination Constitutional: NAD Respiratory: no wheezing, no rhonchi Cardiovascular: RRR, no rub Gastrointestinal: soft, non-tender, positive bowel sounds Musculoskeletal: edema present Neurological: moves all 4 limbs Dx/Plan - Plan DVT proph w/SCDs IMPRESSION: 1. Acute on Chronic Systolic HF - improved with dialysis 2. C diff diarrhea - on PO Vanc 3. Ischemic CM/CAD 4. Abn LFTs - prob due to passive hepatic congestion 5. Severe PEM 6. Hypokalemia/ESRD on dialysis/Dementia/Infected Stage IV Sacral Decubitus ulcer present on admission/Hyponatremia/Oral thrush PLAN: * DC in AM if stable * Dialysis per Nephrology * Cont current meds as below * Cont Vancomycin IV * Cont PO Vanc Review of Systems - Medications/Allergies Allergies/Adverse Reactions: Allergies Allergy/AdvReac Type Severity Reaction Status Date / Time penicillin G Allergy Verified 03/15/17 01:43 Sulfa (Sulfonamide Allergy Verified 03/15/17 01:43 Antibiotics) Medications: Current Medications Acetaminophen (Tylenol) 650 mg PO Q4H PRN PRN Reason: Headache/Fever or Pain Acetaminophen/Codeine Phosphate (Tylenol #3) 1 tab PO Q6H PRN PRN Reason: Pain Last Admin: 12/17/17 09:37 Dose: 1 tab Benzonatate (Tessalon) 100 mg PO TID PRN PRN Reason: Cough Carvedilol (Coreg) 12.5 mg PO BID-[facility] Last Admin: 03/17/17 16:44 Dose: Not Given Clopidogrel Bisulfate (Plavix) 75 mg PO DAILY [facility] Last Admin: 03/17/17 08:02 Dose: 75 mg Dextrose (Glutose 15 40% Oral Gel) 0 gm PO PRN PRN PRN Reason: Hypoglycemia Diphenoxylate HCl/Atropine (Lomotil) 2 tab PO Q12H PRN PRN Reason: Diarrhea/Loose Stools Epoetin Robert (Procrit) 10,000 units SC Q7D@1100 [facility] Last Admin: 03/16/17 13:02 Dose: 10,000 units Famotidine (Pepcid) 20 mg PO DAILY [facility] Last Admin: 03/17/17 08:02 Dose: 20 mg Hyoscyamine Sulfate (Levsin) 0.125 mg PO BID [facility] Last Admin: 03/17/17 09:07 Dose: 0.125 mg Vancomycin HCl 1.25 gm/ Sodium (Chloride) 250 mls @ 166.667 mls/hr [facility] Vancomycin HCl 1 gm/ Device 200 mls @ 200 mls/hr IVPB [facility] Vancomycin HCl 750 mg/ Sodium (Chloride) 250 mls @ 250 mls/hr IVPB [facility] Last Admin: 03/15/17 16:50 Dose: 250 mls Vancomycin HCl 500 mg/ Sodium (Chloride) 100 mls @ 100 mls/hr [facility] Loperamide HCl (Imodium) 2 mg PO PRN PRN PRN Reason: AFTER EA LOOSE STOOL Miscellaneous Medication (Pharmacy To Dose) 1 each IVPB PRN PRN PRN Reason: Pharmacy to dose Nitroglycerin (Nitrostat) 0.4 mg SL Q5MIN PRN PRN Reason: Chest Pain Hold Vancomycin For (Level >20) 0 each FS .AT DIALYSIS [facility] Nystatin (Mycostatin) 500,000 units SSW QID [facility] Last Admin: 03/17/17 16:44 Dose: Not Given Polyethylene Glycol (Miralax) 17 gm PO Q12H PRN PRN Reason: Constipation Sacubitril/Valsartan (Entresto 49 Mg-51 Mg Tablet) 1 tab PO BID [facility] Last Admin: 03/17/17 09:07 Dose: 1 tab Sevelamer Carbonate (Renvela) 800 mg PO TID-[facility] Last Admin: 03/17/17 16:44 Dose: Not Given Sodium Chloride (Flush - Normal Saline) 10 ml IVF PRN PRN PRN Reason: Saline Flush Last Admin: 03/17/17 08:02 Dose: 10 ml Vancomycin HCl (First Vancomycin) 250 mg PO Q6HR [facility] Last Admin: 03/17/17 12:07 Dose: 250 mg
--- NOTE | 2017-03-17 17:49 | PRG ---
DATE OF SERVICE: 03/17/2017 SERVICE: Renal Medicine. SUBJECTIVE: Ms. Olivarez is an 81-year-old black female with ESRD, currently undergoing dialysis and e bedside supervise her dialysis. We did advise her dialysis to Friday, Friday, Friday schedule. No new complaints still, but decreased mentation, increasing confusion. OBJECTIVE: VITAL SIGNS: Blood pressure 95/39, heart rate 64, respiratory rate 18, temperature 98.4. GENERAL: Awake, comfortable, not in overt distress. SKIN: Decreased turgor. HEENT: She has slightly pale conjunctivae, anicteric sclerae. NECK: No neck mass, no carotid bruits, no JVD. CHEST: No deformities. LUNGS: Decreased breath sounds. HEART: Normal sinus rhythm. No murmur, no gallops, no rubs. ABDOMEN: Globular, soft, nontender, no masses. EXTREMITIES: No edema, no deformities. MEDICATIONS: Medications of 03/17/2017, reviewed. LABORATORY DATA: Laboratories of 03/17/2017, white count 12, hemoglobin 8.4. Sodium 139, potassium 3.3, chloride 100, carbon dioxide 32, BUN 20, creatinine 3.22, calcium 7.6, glucose 91. ASSESSMENT AND PLAN: 1. End-stage renal disease, stable. Tolerating hemodialysis. Minimal fluid removal due to the low blood pressure. She came in with some degree of CHF, for that reason fluid removal was done during t he last few days with the dialysis. Continue supportive care. 2. Anemia - Epogen 10,000 units subcu every week was restarted. 3. Sacral decubitus - supportive care. 4. Dementia, supportive care. Overall, prognosis remains poor with this patient. I feel that they should consider palliative care of this patient. Previously, discussed with the family, who remains undecided.
[2017-03-17] MEDS: Saccharomyces boulardii 250 MG CAP PO SCH (20:17)
[2017-03-17 20:37] LABS: Vancomycin, Trough 10.4 ug/mL
[2017-03-17] MEDS: Vancomycin HCl 750 MG in Sodium Chloride 0.9% 250 ML 250 ML IVPB SCH (21:26)
[2017-03-18] MEDS: Vancomycin HCl 25 MG/ML Oral PO SCH ×5 (00:03→23:12)
[2017-03-18 04:53] LABS: Anion Gap 11 mmol/L (10-20); BUN (Urea Nitrogen) 14 mg/dL (9.8-20.1); Calc. Creatinine Clearance 19 mL/min (70-130); Calcium 7.5 mg/dL (7.8-10.44); Carbon Dioxide 29 mmol/L (23-31); Chloride 102 mmol/L (98-107); Estimated GFR-MDRD 25
[2017-03-18 07:09] LABS: Hematocrit 27.4 % (36.0-47.0); Mean Platelet Volume 10.2 fL (7.4-10.4); Red Blood Cell (RBC) Count 2.65 mill/uL (4.20-5.40); White Blood Cell (WBC) Count 18.4 thou/uL (4.8-10.8)
[2017-03-18 07:52] LABS: Band 24 % (5-11); Hypochromia MODERATE=16-30 cells (100X) (0-5/hpf); Macrocytosis SLIGHT = 6-15 cells (100X) (0-5/hpf); Neutrophil 73 % (42-75); Polychromasia SLIGHT = 2-3 cells (100X) (0-2/hpf); Target Cells SLIGHT = 2-5 cells (100X) (0-1/hpf)
[2017-03-18] MEDS: Nystatin 500,000 UNITS/5 ML UDCUP SSW SCH ×4 (08:08→20:31)
[2017-03-18] MEDS: Famotidine 20 MG TAB PO SCH (08:09)
[2017-03-18] MEDS: Carvedilol 6.25 MG TAB PO SCH ×2 (08:09→16:17)
[2017-03-18] MEDS: Clopidogrel Bisulfate 75 MG TAB PO SCH (08:09)
[2017-03-18] MEDS: Saccharomyces boulardii 250 MG CAP PO SCH ×2 (08:09→20:30)
[2017-03-18] MEDS: Sevelamer Carbonate 800 MG TAB PO SCH ×3 (08:09→16:17)
[2017-03-18] MEDS: Sacubitril 49 MG/Valsartan 51 MG TABLET PO SCH ×2 (09:00→20:31)
[2017-03-18] MEDS ORDERED: Heparin 10,000 UNITS/ 10 ML VIAL ONE (11:51)
--- NOTE | 2017-03-18 14:04 | CON ---
DATE OF CONSULTATION: 03/18/2017 REASON FOR CONSULTATION: Leukocytosis. HISTORY OF PRESENT ILLNESS: An 81-year-old, known to us from prior visits, who has a history of end-stage renal disease, on hemodialysis through AV fistula, and type 2 diabetes mellitus, whom I had seen in the past for episodes of altered mental status and hypoglycemia associated with ischemic cardiomyopathy and malnutrition with wasting syndrome. In the past, she had a documented pyelocystitis associated with low urine output. At that time, she did not have evidence of an invasive urinary tract infection. We did not recommend treatment with antimicrobial therapy and felt that the hypoglycemic episodes were associated with poor nutritional input plus chronic liver disease. Other possibility of hypoglycemia had not been ruled out though. On 03/02/2017, the patient fell from the wheelchair and was brought to the hospital and was identified with a type 2 odontoid fracture and spondylolisthesis of C3-C4 with cervical myelopathy. She was evaluated by Neurosurgery and she was deemed not a candidate for surgical intervention. She has become quadriparetic and has been transferred to a detention. She is back in the hospital now, brought in because of decreased oral intake, lethargy. Initial findings, temperature 99.2, blood pressure 120/52, pulse 75, respirations 20, O2 sat 100%. She appears a little bit confused. Lungs with symmetric clear breath sounds. Heart exam was normal. Abdomen, soft, nontender or distended. Did not have any Austin catheter. Initial laboratory data demonstrated sodium 137, creatinine 5.12, potassium 3.5, AST 125, ALT 236 with alkaline phosphatase 1143. CK was 193 and albumin 1.9. Her blood glucose has ranged from 65-200. Initial white cell count 17,000, hemoglobin 8.4, MCV 105, platelets 99 with 85% neutrophils, bands 13. Over the past few days, patient has been managed with codeine, Tessalon, Plavix , Coreg, Procrit, famotidine, loperamide. She was given vancomycin, sliding scale. Saccharomyces and has been started on oral vancomycin. Currently, Ms. Olivarez is obtunded. She will open her eyes and follow some commands. I could not interview the patient, because of her limited ability to communicate. The patient has had 3 soft stools yesterday and 1 thus far this morning. PAST MEDICAL HISTORY: Type 2 diabetes; end-stage renal disease, on hemodialysis through a fistula; recurrent episodes of hypothyroidism; malnutrition; hypoalbuminemia; pyelocystitis. PAST SURGICAL HISTORY: Hysterectomy, AV fistula placement, cardiac catheterization with bypass graft surgery. ALLERGIES: PENICILLIN and SULFA DRUGS with a skin rash. MEDICATIONS: Medications have been reviewed above. FAMILY HISTORY: Hypertension. SOCIAL HISTORY: Never smoker. [facility] resident. PHYSICAL EXAMINATION: VITAL SIGNS: Temperature max 99.8 this morning, blood pressure 113/70, pulse 85 , respirations 18-20, O2 sat 94%. SKIN EXAMINATION: With an unstageable large presacral ulceration with a dark brownish necrotic tissue at the base of the wound. Peripheral IV access and voiding in her diaper. GENERAL: Severe malnutrition. Temporal wasting. HEENT: Ocular movements are conjugate. Sclerae white. Patient has no teeth remaining in place. Pale conjunctivae. Diffuse stiffness. LUNGS: Symmetrically clear lung sounds. HEART: S1, S2, regular rate with a soft aortic murmur. ABDOMEN: Flat, soft, not distended, not tender. Bowel sounds are not increased. EXTREMITIES: The patient has quadriplegia. No movements are ascertained in the upper and lower extremities. Trace edema, lower extremities. Upgoing toes. Plantar reflexes, right and left side. NEUROLOGIC: She replies when her name is called. She will follow some commands. LABORATORY DATA: White cell count is at 18.4, hemoglobin 8.4, platelets 117, 000. Sodium 128, creatinine 4.65, calcium 7.5. Vancomycin trough 10.4. Hepatitis surface antigen nonreactive. Chest x-ray from this admission with vascular congestion, small bilateral pleural effusions, dual lead pacemaker in the left chest wall. ASSESSMENT AND PLAN: 1. Type 2 diabetes. 2. End-stage renal disease, on hemodialysis through AV fistula. 3. Quadriparesis following a cervical injury and odontoid fracture, which was deemed not to be surgically correctable or at least patient not eligible for that procedure. 4. Malnutrition with decreased oral intake. 5. Unstageable presacral decubitus ulcer. 6. Leukocytosis with left shift. DISCUSSION: Differential diagnosis includes bacteremia or an inflammatory process associated with the decubitus ulcer versus thromboembolism. Adrenergic response with de-margination associated with congestive heart failure is another possibility. The patient has severe malnutrition, and I would, at this point, consider conservative management with palliative care consultation rather than aggressive surgical debridement or antimicrobial therapy. The C. difficile finding is another consideration, although the stool characteristic is not typical of C. difficile. The positivity was associated with PCR for toxin and that could reflect colonization rather than true colitis at this point in time. I would nonetheless continue treating her, just changing the dose to 125 mg 4 times a day for 10 days. Again, I would advise consultation with palliative care. MTDD
--- NOTE | 2017-03-18 22:52 | PDOC.PN ---
- Subjective Encounter Start Date: 03/18/17 Encounter Start Time: 09:45 Patient seen and examined. No new complaints. No overnight events - Objective Resuscitation Status: Resuscitation Status DNR:Do Not Resuscitate MAR Reviewed: Yes Vital Signs & Weight: Vital Signs (12 hours) Temp Pulse Resp BP Pulse Ox 03/18/17 20:00 99.8 F H 79 20 112/56 L 95 Weight Admit Weight 138 lb Weight 131 lb 2.801 oz I&O: 03/17/17 03/18/17 03/19/17 06:59 06:59 06:59 Intake Total 650 360 Balance 650 360 Result Diagrams: 03/19/17 10:35 03/19/17 10:35 Additional Labs: Accuchecks 03/18/17 03/18/17 03/18/17 20:45 16:28 11:38 POC Glucose 84 98 104 03/18/17 05:06 POC Glucose 76 Phys Exam - Physical Examination Constitutional: NAD Respiratory: no wheezing, no rhonchi Scat rales at bases Cardiovascular: RRR, no rub Gastrointestinal: soft, non-tender, positive bowel sounds Neurological: moves all 4 limbs Dx/Plan - Plan plan discussed w/ family, DVT proph w/SCDs IMPRESSION: 1. Sepsis with acute organ dysfunction (present on admission) - with persistent leukocytosis 2. Acute on Chronic Systolic HF - improved with dialysis 3. C diff diarrhea ?colonization - on PO Vanc 4. Abn LFTs - prob due to passive hepatic congestion 5. Toxic Metabolic Encephalopathy (present on admission) 6. Severe PEM/Ischemic CM/CAD/Hypokalemia - resolved/ESRD on dialysis/Dementia/ Infected Stage IV Sacral Decubitus ulcer present on admission/Hyponatremia/Oral thrush PLAN: * Case d/w Dr Collier - Dr Collier recommended ID consultation * Consult Palliative care * Cont current Atbx * Dialysis per Nephrology * Cont current meds as below * No Heparin/Lovenox due to thrombocytopenia Review of Systems - Review of Systems Respiratory: negative: Cough, Dry, Shortness of Breath, Hemoptysis, SOB with Excertion, Pleuritic Pain, Sputum, Wheezing Cardiovascular: negative: chest pain, palpitations, orthopnea, paroxysmal nocturnal dyspnea, edema, light headedness - Medications/Allergies Allergies/Adverse Reactions: Allergies Allergy/AdvReac Type Severity Reaction Status Date / Time penicillin G Allergy Verified 03/15/17 01:43 Sulfa (Sulfonamide Allergy Verified 03/15/17 01:43 Antibiotics) Medications: Current Medications Acetaminophen (Tylenol) 650 mg PO Q4H PRN PRN Reason: Headache/Fever or Pain Acetaminophen/Codeine Phosphate (Tylenol #3) 1 tab PO Q6H PRN PRN Reason: Pain Last Admin: 03/16/17 09:37 Dose: 1 tab Benzonatate (Tessalon) 100 mg PO TID PRN PRN Reason: Cough Carvedilol (Coreg) 12.5 mg PO BID-[facility] Last Admin: 03/18/17 16:17 Dose: 12.5 mg Clopidogrel Bisulfate (Plavix) 75 mg PO DAILY REPLACED BY [facility] Last Admin: 03/18/17 08:09 Dose: 75 mg Dextrose (Glutose 15 40% Oral Gel) 0 gm PO PRN PRN PRN Reason: Hypoglycemia Diphenoxylate HCl/Atropine (Lomotil) 2 tab PO Q12H PRN PRN Reason: Diarrhea/Loose Stools Epoetin Robert (Procrit) 10,000 units SC Q7D@1100 REPLACED BY [facility] Last Admin: 03/16/17 13:02 Dose: 10,000 units Famotidine (Pepcid) 20 mg PO DAILY REPLACED BY [facility] Last Admin: 03/18/17 08:09 Dose: 20 mg Hyoscyamine Sulfate (Levsin) 0.125 mg PO BID REPLACED BY [facility] Last Admin: 03/18/17 20:31 Dose: 0.125 mg Vancomycin HCl 1.25 gm/ Sodium (Chloride) 250 mls @ 166.667 mls/hr IVPB WILLCALL REPLACED BY [facility] Vancomycin HCl 1 gm/ Device 200 mls @ 200 mls/hr IVPB WILLCALL REPLACED BY [facility] Vancomycin HCl 750 mg/ Sodium (Chloride) 250 mls @ 250 mls/hr IVPB WILLCALL REPLACED BY [facility] Last Admin: 03/17/17 21:26 Dose: 250 mls Vancomycin HCl 500 mg/ Sodium (Chloride) 100 mls @ 100 mls/hr IVPB WILLCALL REPLACED BY [facility] Loperamide HCl (Imodium) 2 mg PO PRN PRN PRN Reason: AFTER EA LOOSE STOOL Miscellaneous Medication (Pharmacy To Dose) 1 each IVPB PRN PRN PRN Reason: Pharmacy to dose Nitroglycerin (Nitrostat) 0.4 mg SL Q5MIN PRN PRN Reason: Chest Pain Hold Vancomycin For (Level >20) 0 each FS .AT DIALYSIS REPLACED BY [facility] Nystatin (Mycostatin) 500,000 units SSW QID REPLACED BY [facility] Last Admin: 03/18/17 20:31 Dose: 500,000 units Polyethylene Glycol (Miralax) 17 gm PO Q12H PRN PRN Reason: Constipation Saccharomyces Boulardii (Florastor) 250 mg PO BID REPLACED BY [facility] Last Admin: 03/18/17 20:30 Dose: 250 mg Sacubitril/Valsartan (Entresto 49 Mg-51 Mg Tablet) 1 tab PO BID REPLACED BY [facility] Last Admin: 03/18/17 20:31 Dose: 1 tab Sevelamer Carbonate (Renvela) 800 mg PO TID-WM REPLACED BY [facility] Last Admin: 03/18/17 16:17 Dose: 800 mg Sodium Chloride (Flush - Normal Saline) 10 ml IVF PRN PRN PRN Reason: Saline Flush Last Admin: 03/17/17 08:02 Dose: 10 ml Vancomycin HCl (First Vancomycin) 125 mg PO Q6HR REPLACED BY [facility]
[2017-03-19] MEDS: Vancomycin HCl 25 MG/ML Oral PO SCH ×4 (05:11→23:53)
[2017-03-19] MEDS: Sevelamer Carbonate 800 MG TAB PO SCH ×3 (08:26→17:42)
[2017-03-19] MEDS: Clopidogrel Bisulfate 75 MG TAB PO SCH (08:26)
[2017-03-19] MEDS: Nystatin 500,000 UNITS/5 ML UDCUP SSW SCH ×4 (08:27→20:28)
[2017-03-19] MEDS: Carvedilol 6.25 MG TAB PO SCH ×2 (08:27→17:42)
[2017-03-19] MEDS: Saccharomyces boulardii 250 MG CAP PO SCH ×2 (08:27→20:27)
[2017-03-19] MEDS: Famotidine 20 MG TAB PO SCH (08:27)
[2017-03-19] MEDS: Sacubitril 49 MG/Valsartan 51 MG TABLET PO SCH ×2 (09:46→20:28)
[2017-03-19 10:45] LABS: Mean Platelet Volume 9.2 fL (7.4-10.4); Red Blood Cell (RBC) Count 2.67 mill/uL (4.20-5.40); White Blood Cell (WBC) Count 17.8 thou/uL (4.8-10.8)
[2017-03-19 10:46] LABS: #Eosinphils 0.1 thou/uL (0.0-0.7); #Lymphocytes 1.2 thou/uL (1.20-3.40); #Monocytes 0.8 thou/uL (0.11-0.59); #Neutrophils 15.8 thou/uL (1.40-6.50); %Eosinophils 0.4 % (0.0-10.0); %Lymphocytes 6.7 % (21.0-51.0); %Monocytes 4.3 % (0.0-10.0)
[2017-03-19 11:09] LABS: Band 30 % (5-11); Hypochromia SLIGHT = 6-15 cells (100X) (0-5/hpf); Macrocytosis SLIGHT = 6-15 cells (100X) (0-5/hpf); Neutrophil 58 % (42-75); Polychromasia SLIGHT = 2-3 cells (100X) (0-2/hpf); Schistocytes SLIGHT = 2-5 cells (100X) (0-1/hpf); Target Cells SLIGHT = 2-5 cells (100X) (0-1/hpf)
[2017-03-19 11:22] LABS: Calcium 7.7 mg/dL (7.8-10.44); Chloride 104 mmol/L (98-107)
[2017-03-19 11:26] LABS: Anion Gap 13 mmol/L (10-20); Carbon Dioxide 27 mmol/L (23-31)
[2017-03-19 11:28] LABS: Calc. Creatinine Clearance 13 mL/min (70-130); Estimated GFR-MDRD 17
[2017-03-19 11:29] LABS: BUN (Urea Nitrogen) 22 mg/dL (9.8-20.1)
[2017-03-19 12:33] LABS: Vancomycin, Random 15.1 ug/mL (See Comment)
--- NOTE | 2017-03-19 14:41 | PQF ---
LITZY RICO MALIK MD [id number] [facility] [id number] CLINICAL DOCUMENTATION IMPROVEMENT CLARIFICATION FORM: ICD-10 Updated PLEASE DO AN ADDENDUM TO THE PROGRESS NOTE WITH ANY DOCUMENTATION UPDATES OR ADDITIONS AND CARRY THROUGH TO DC SUMMARY. THANK YOU. DATE: 03-19-17 ATTN: DR. UCTLER Please exercise your independent, professional judgment in responding to the clarification form. Clinical indicators are provided on the bottom of this form for your review Diagnosis of SEPSIS [ ] Present on admission: [ ] Yes [ ] No [ ] Unable to determine [ ] Other diagnosis: Coding guidelines require hospitals to identify whether a diagnosis was present on admission (POA) or not. To accurately assign the appropriate POA indicator, this information must be clearly documented within the medical record. CLINICAL INDICATORS - SIGNS / SYMPTOMS / LABS LABS: WBC BANDS -16 17.8 13 03-16 23.1 03-19 17.8 30 TEMP 12-15 96.1 03-18 PN: SEPSIS W/ ORGAN DYSFUNCITON PERSISTENT LEUKOCYTOSIS C-DIFF RISK FACTORS: PN 03-18 C-DIFF DIARRHEA STAGE IV SACRAL DECUBITUS ULCER TREATMENT: CPOE MAR - VANCOMYCIN 01-15 / 01-16 / 01-17 ID CONSULT THANK YOU, BRANDY (This form is maintained as a part of the permanent medical record) 2014 [email or web address] All Rights Reserved Brandy Snyder RN, BS [email or web address] Cell [facility]
--- NOTE | 2017-03-19 17:22 | DIS ---
DATE OF DISCHARGE: 03/19/2017 DISCHARGE DISPOSITION: long term. FOLLOWUP: 1. Follow up with primary care physician, Dr. Huitron at the nursing facility. 2. Follow up with Dr. Collier for hemodialysis. CODE STATUS: DO NOT RESUSCITATE. ALLERGIES: The patient is allergic to PENICILLIN and SULFA. The patient was seen and examined on the day of discharge. Denies any new complaints, no chest pain, shortness of breath, palpitations. DISCHARGE MEDICATIONS: 1. Vancomycin IV with hemodialysis, managed by Dr. Collier. 2. Oral vancomycin 125 mg every 6 hourly for the next 10 days. 3. Lipitor 10 mg at bedtime. 4. Carvedilol 12.5 mg b.i.d. 5. Plavix 75 mg daily. 6. Colace 100 mg daily. 7. Lasix 20 mg daily. 8. Hyoscyamine 0.125 mg b.i.d. 9. Ranitidine 150 mg b.i.d. 10. Florastor 250 mg b.i.d. 11. Entresto 49/51 b.i.d. 12. Other p.r.n. medications were resumed. BRIEF HOSPITAL COURSE: The patient is an 81-year-old female with diabetes mellitus type 2, coronary artery disease, chronic systolic heart failure and decubitus ulcer, presented to the hospital with ge neralized weakness with altered mentation. She also had a recent fall with C-spine fracture. The pa fabio has been bed bound at the nursing facility. Please refer to the history and physical dated for further details. The patient was admitted to the hospital with the diagnosis of acute on chronic systolic heart failur e exacerbation that improved with dialysis. Workup was also consistent with Clostridium difficile di arrhea for which she was started on oral vancomycin. She was also started on empiric antibiotics on admission for possible infected decubitus ulcer. She received wound care during this hospital stay. She was seen by Nephrology, Dr. Collier as well as Infectious Disease, Dr. Paul. Dr. Paul recommended palliative care. Palliative care met with the family. I discussed hospice with one of the sons. T he family will discuss among themselves and make a decision about hospice. Dr. Collier will continue IV vancomycin with dialysis. The patient is at risk of readmission given her multiple comorbidities. FINAL DIAGNOSES: 1. Sepsis with acute organ dysfunction, present on admission. 2. Decubitus ulcer stage IV at the sacrum probably infected, present on admission. 3. Clostridium difficile diarrhea. 4. Acute on chronic systolic heart failure, improved with dialysis. 5. Abnormal liver function tests, probably secondary to passive hepatic congestion. 6. Severe protein energy malnutrition. 7. Ischemic cardiomyopathy. 8. Coronary artery disease. 9. Hypokalemia, resolved. 10. End-stage renal disease on hemodialysis. 11. Dementia. 12. Hyponatremia. 13. Oral thrush, resolved. 14. Toxic metabolic encephalopathy on admission, resolved. 15. Recent cervical spine fracture. Plan of care was discussed with the son in detail. They stated understanding. Total time coordinating the discharge of this patient was 35 minutes.
[2017-03-20] MEDS: Vancomycin HCl 25 MG/ML Oral PO SCH ×2 (05:20→13:20)
[2017-03-20 06:01] LABS: Anion Gap 11 mmol/L (10-20); BUN (Urea Nitrogen) 29 mg/dL (9.8-20.1); Calc. Creatinine Clearance 11 mL/min (70-130); Calcium 7.7 mg/dL (7.8-10.44); Carbon Dioxide 29 mmol/L (23-31); Chloride 103 mmol/L (98-107); Estimated GFR-MDRD 14
[2017-03-20 06:22] LABS: #Eosinphils 0.1 thou/uL (0.0-0.7); #Monocytes 0.8 thou/uL (0.11-0.59); #Neutrophils 15.6 thou/uL (1.40-6.50); %Basophils 0.1 % (0.0-1.0); %Eosinophils 0.6 % (0.0-10.0); %Lymphocytes 5.7 % (21.0-51.0); %Monocytes 4.5 % (0.0-10.0); Hematocrit 27.8 % (36.0-47.0); Mean Platelet Volume 9.7 fL (7.4-10.4); Red Blood Cell (RBC) Count 2.72 mill/uL (4.20-5.40); White Blood Cell (WBC) Count 17.5 thou/uL (4.8-10.8)
--- NOTE | 2017-03-20 08:48 | PRG ---
DATE OF SERVICE: 03/20/2017 SUBJECTIVE: Ms. Olivarez is currently at dialysis. We are dialyzing her and she seems to be tolerating this treatment. I am at the bedside supervising her dialysis. Ms. Olivarez generally remains unimprov ed. She is noted to be cachectic and has decreased p.o. intake. She is also being treated for C. di ff colitis with empiric IV vancomycin as well as p.o. vancomycin. She has remained unimproved. Rosas gonzalez the last few months, her general condition has deteriorated. Hospice/palliative care has been dis cussed with the family and they are contemplating on hospice. OBJECTIVE: VITAL SIGNS: Blood pressure is 112/64, heart rate 73, respiratory rate 16, temperature 98.7, pulse o x 96%. GENERAL: Noted to be awake, cachectic looking, not in overt distress. SKIN: Decreased turgor. HEENT: Slightly pale conjunctivae, anicteric sclerae. NECK: No neck mass, no carotid bruits, no JVD. CHEST: No deformities. LUNGS: Clear breath sounds. HEART: Normal sinus rhythm. No murmur, no gallops, no rubs. ABDOMEN: Globular, soft, nontender. EXTREMITIES: No edema. Positive for sacral decubitus. MEDICATIONS: 03/20/2017, was reviewed. LABORATORY DATA: 03/20/2017, white count is 17.5, hemoglobin 8.1. Sodium 139, potassium 3.6, chlori de 103, carbon dioxide 29, BUN 29, creatinine 3.64, glucose 65, calcium 7.7. ASSESSMENT AND PLAN: 1. End-stage renal disease. Continuing 3 times a week of hemodialysis. Fluid removal only as marisa ated. My plan is to minimize fluid removal due to the decreased p.o. intake with this patient at the present time. 2. Chronic congestive heart failure, clinically asymptomatic. 3. Failure to thrive - discussed hospice and palliative care with the patient's family. They are tr mayra to finalize their decision. I feel strongly that this patient should be placed under hospice. The reasons are straightforward - underlying dementia, failure to thrive, decreased p.o. intake.
[2017-03-20] MEDS: Carvedilol 6.25 MG TAB PO SCH (09:09)
[2017-03-20] MEDS: Nystatin 500,000 UNITS/5 ML UDCUP SSW SCH (09:10)
[2017-03-20] MEDS: Clopidogrel Bisulfate 75 MG TAB PO SCH (09:10)
[2017-03-20] MEDS: Sevelamer Carbonate 800 MG TAB PO SCH ×2 (09:10→13:20)
[2017-03-20] MEDS: Sacubitril 49 MG/Valsartan 51 MG TABLET PO SCH (09:10)
[2017-03-20] MEDS: Saccharomyces boulardii 250 MG CAP PO SCH (09:10)
[2017-03-20] MEDS: Famotidine 20 MG TAB PO SCH (09:10)
[2017-03-20] MEDS ORDERED: Heparin 10,000 UNITS/ 10 ML VIAL ONE (11:00)
[2017-03-20 13:39] VITALS: BP 125/69; TEMP 98.7
--- NOTE | 2017-03-20 18:43 | PDOC.EVN ---
Event Note - Event Note Event Note: Patient was unable to leave on 03/19 due to lack of PO Vancomycin at longterm. She underwent hemodialysis today and was discharged.
== END 2017-03-20 13:45 | DRG 871 ==
LOC: ERS 15:03 → 2NO 17:40 → T4-B 03-16 18:52
PROVIDERS: ADMIT Internal Medicine Addiction Medicine; ATTEND Internal Medicine Addiction Medicine
PROC: 5A1D70Z Performance of Urinary Filtration, Intermittent, Less than 6 Hours Per Day (ICD-10-PCS; principal; 2017-03-15)
DX: A41.9 Sepsis, unspecified organism (principal); E43 Unspecified severe protein-calorie malnutrition; G93.41 Metabolic encephalopathy; G82.50 Quadriplegia, unspecified; L89.154 Pressure ulcer of sacral region, stage 4; I50.23 Acute on chronic systolic (congestive) heart failure; E86.1 Hypovolemia; N18.6 End stage renal disease; I13.2 Hypertensive heart and chronic kidney disease with heart failure and with stage 5 chronic kidney disease, or end stage renal disease; A04.72 Enterocolitis due to Clostridium difficile, not specified as recurrent; E87.1 Hypo-osmolality and hyponatremia; B37.0 Candidal stomatitis; I25.5 Ischemic cardiomyopathy; I25.10 Atherosclerotic heart disease of native coronary artery without angina pectoris; R65.20 Severe sepsis without septic shock; F03.90 Unspecified dementia, unspecified severity, without behavioral disturbance, psychotic disturbance, mood disturbance, and anxiety; E11.22 Type 2 diabetes mellitus with diabetic chronic kidney disease; Z95.1 Presence of aortocoronary bypass graft; Z99.2 Dependence on renal dialysis; K21.9 Gastro-esophageal reflux disease without esophagitis; R62.7 Adult failure to thrive; Z66 Do not resuscitate; E87.6 Hypokalemia; S14.102S Unspecified injury at C2 level of cervical spinal cord, sequela; S12.100S Unspecified displaced fracture of second cervical vertebra, sequela; W19.XXXS Unspecified fall, sequela; D63.1 Anemia in chronic kidney disease; Z68.24 Body mass index [BMI] 24.0-24.9, adult
CPT/HCPCS: 36415; 36416; 51701; 71010; 80048; 80053; 80069; 80202; 82553; 83880; 84484; 85025; 87324; 87340; 87449; 87493; 90935; 94760; 96360; A4216; A4353; G0257; G8978-GP-CM; G8979-GP-CL; G8987-GO-CN; G8988-GO-CN; G8989-GO-CN; G8996-GN-CL; G8997-GN-CK; J1644; J2001; J3370; J7050; Q4081